=== PATIENT | male | born 1960 | race Caucasian/White ===

== ENCOUNTER 2016-10-13 18:55 | Emergency (ER) | payer BC ==
--- NOTE | 2016-10-13 19:47 | UC ---
Respiratory Complaint HPI - HPI Summary HPI Summary: 56 yo male with fever and cough that started today no n/c no cp or sob he has had intermittent "cold" symptoms x 3 weeks - History of Current Complaint Chief Complaint: UCRespiratory Stated Complaint: UPPER RESP COMPLAINT Time Seen by Provider: 10/13/16 19:12 Hx Obtained From: Patient Onset/Duration: Gradual Onset, Lasting Hours Timing: Constant Severity Initially: Moderate Severity Currently: Moderate Pain Intensity: 2 Character: Cough: Nonproductive Aggravating Factors: Deep Breaths Alleviating Factors: Nothing Associated Signs And Symptoms: Positive: Fever, Chills, Wheezing - Allergies/Home Medications Allergies/Adverse Reactions: Allergies Allergy/AdvReac Type Severity Reaction Status Date / Time Adhesive Tape Allergy Rash Verified 10/13/16 19:03 Home Medications: Home Medications Finasteride TAB* [Proscar TAB*] 10/13/16 [History] Losartan Potassium 10/13/16 [History Confirmed 10/13/16] Tadalafil [Cialis] 10/13/16 [History] PMH/Surg Hx/FS Hx/Imm Hx Previously Healthy: Yes Respiratory History: Pneumonia - Surgical History Surgical History: Yes Surgery Procedure, Year, and Place: WISDOM TEETH REMOVAL 1979 - Family History Known Family History: Positive: Cardiac Disease, Hypertension, Diabetes - Social History Alcohol Use: Occasionally Substance Use Type: None Smoking Status (MU): Light Every Day Tobacco Smoker Review of Systems Constitutional: Fever, Chills Skin: Negative Eyes: Negative ENT: Negative Respiratory: Cough, Other - wheezing Cardiovascular: Negative Gastrointestinal: Negative Genitourinary: Negative Motor: Negative Neurovascular: Negative Musculoskeletal: Negative Neurological: Negative Psychological: Negative All Other Systems Reviewed And Are Negative: Yes Physical Exam Triage Information Reviewed: Yes Appearance: Well-Appearing, No Pain Distress, Well-Nourished Vital Signs: Initial Vital Signs Temp 101.0 F 10/13/16 18:58 Pulse 107 10/13/16 18:58 Resp 18 10/13/16 18:58 BP 176/97 10/13/16 18:58 Pulse Ox 98 10/13/16 18:58 Eyes: Positive: Conjunctiva Clear ENT: Positive: Hearing grossly normal, Nasal drainage, TMs normal. Negative: Tonsillar exudate, Trismus, Muffled/hoarse voice Neck: Positive: Supple, Nontender Respiratory: Positive: No respiratory distress, No accessory muscle use, Wheezing Cardiovascular: Positive: RRR, No Murmur, Tachycardia Musculoskeletal: Positive: ROM Intact, No Edema Neurological: Positive: Alert Psychological Exam: Normal Skin Exam: Normal UC Diagnostic Evaluation - Laboratory O2 Sat by Pulse Oximetry: 98 - normal/not hypoxic Re-Evaluation - Re-Evaluation First Eval Re-Evaluation Time: 20:47 Change: Improved - feels subjectively better, decreased wheezing, better air movement Respiratory Course/Dx - Course Course Of Treatment: patient ale improved at d/c. aware of need for BP recheck. has appt next week - Differential Dx/Diagnosis Provider Diagnoses: acute bronchitis with bronchospasm. elevated BP Discharge - Discharge Plan Condition: Improved Disposition: HOME Patient Education Materials: Acute Bronchitis (ED), Bronchospasm (ED) Forms: *Work Release Referrals: Tere Prince MD [Primary Care Provider] - 5 Days Additional Instructions: rest fluids tylenol use inhaler as directed offical xr report pending at time of d/c recheck for new or worsening symptoms see your MD next week as planned
[2016-10-13] MEDS ORDERED: Albuterol 2.5 MG/3 ML NEB.SOL* (0.083%) INH ONE (19:51)
[2016-10-13] MEDS ORDERED: Ipratropium 0.5MG/2.5ML NEB* 0.5 MG/2.5 ML NEB.SOLN INH ONE (19:51)
[2016-10-13] MEDS ORDERED: Amoxicillin CAP* 500 MG PO ONE (20:57)
[2016-10-13] MEDS ORDERED: predniSONE TAB* 20 MG PO ONE (20:57)
[2016-10-13] MEDS ORDERED: Albuterol HFA INHALER* 8 gm MDI INH ONE (20:57)
--- NOTE | 2016-10-13 21:07 | RAD ---
Indication: Fever and cough. 2 views of the chest including dual energy PA views demonstrates no mediastinal shift. Heart is of normal size and configuration. Lung gibson are clear. IMPRESSION: No active cardiopulmonary disease is noted.
[2016-10-13 23:05] VITALS: BP 134/72
== END 2016-10-13 21:26 | disposition home or self-care (01) ==
LOC: UCEAST 18:55
DX: Z72.0 Tobacco use (principal); J20.9 Acute bronchitis, unspecified; R03.0 Elevated blood-pressure reading, without diagnosis of hypertension
CPT/HCPCS: 71020; 99213; A9270-GY; G0463; J7512; J7644

== ENCOUNTER 2020-06-18 09:12 | Inpatient (IN) ==
[2020-06-18 10:12] LABS: ABS Basophils 0.1 10^3/ul (0-0.2); ABS Eosinophils 0.1 10^3/ul (0-0.6); ABS Lymphocytes 1.2 10^3/ul (1.0-4.8); ABS Monocytes 0.6 10^3/ul (0-0.8); ABS Neutrophils 4.7 10^3/ul (1.5-7.7); Eosinophil % 1.5 %; Hematocrit 40 % (42-52); Hemoglobin 13.5 g/dL (14.0-18.0); Lymphocyte % 18.1 %; Mean Corpuscular HGB Conc 34 g/dL (31-36); Mean Corpuscular Hemoglobin 30 pg (27-31); Mean Corpuscular Volume 90 fL (80-94); Platelet Count 227 10^3/uL (150-450); Red Blood Count 4.46 10^6 /uL (4.18-5.48); Red Cell Distribution Width 14 % (10-15); White Blood Count 6.6 10^3/uL (3.5-10.8)
[2020-06-18 10:27] LABS: Activated Partial Thrombo Time 33.8 seconds (26.0-38.0); INR 1.02 (0.82-1.09)
[2020-06-18 10:31] LABS: ALT 25 U/L (7-52); AST 19 U/L (13-39); Albumin 4.4 g/dL (3.2-5.2); Albumin/Globulin Ratio 1.6 (1-3); Alkaline Phosphatase 72 U/L (34-104); Anion Gap 8 mmol/L (2-11); Blood Urea Nitrogen 26 mg/dL (6-24); CO2 Carbon Dioxide 26 mmol/L (22-32); Calcium 9.2 mg/dL (8.6-10.3); Chloride 106 mmol/L (101-111); Creatine Kinase 138 U/L (10-223); EGFR African American 112.4 (>60); EGFR Non-African American 92.9 (>60); Globulin 2.8 g/dL (2-4); Glucose 144 mg/dL (70-100); Magnesium 2.3 mg/dL (1.9-2.7); Potassium 3.9 mmol/L (3.5-5.0); Sodium 140 mmol/L (135-145); Total Protein 7.2 g/dL (6.4-8.9)
[2020-06-18 10:39] LABS: Urine Appearance Clear; Urine Bilirubin Negative (Negative); Urine Blood Negative (Negative); Urine Color Yellow; Urine Glucose Negative (Negative); Urine Ketones Negative (Negative); Urine Nitrite Negative (Negative); Urine Protein Negative (Negative); Urine Specific Gravity 1.016 (1.010-1.030); Urine Urobilinogen Negative (Negative)
[2020-06-18 10:54] LABS: Troponin I 0.03 ng/mL (<0.03)
[2020-06-18 11:01] LABS: TSH Ultra Thyroid Stim Horm 1.54 mcIU/mL (0.34-5.60)
[2020-06-18 14:25] LABS: Troponin I 0.03 ng/mL (<0.03)
[2020-06-18] MEDS ORDERED: Furosemide 40 mg/4 ml IV VIAL IV ONE (14:40)
[2020-06-18] MEDS ORDERED: Metoprolol Tartrate 5 mg VIAL 5 ml VIAL (1 mg/ml) IV ONE (14:41)
[2020-06-18] MEDS ORDERED: Digoxin IV 0.5 MG/2 ML AMP (0.25 MG/ML) IV SLOW PU ONE (14:41)
[2020-06-18] MEDS ORDERED: Potassium Chlor 20 meq TAB.ER PO ONE (14:44)
[2020-06-18 14:45] LABS: Cholesterol 175 mg/dL; HDL Cholesterol 36.5 mg/dL; Triglycerides 153 mg/dL
[2020-06-18 14:46] LABS: LDL Cholesterol 108 mg/dL
[2020-06-18] MEDS ORDERED: Enoxaparin 40 MG/0.4 ML SYR SUBCUT SCH (15:00)
[2020-06-18 15:35] LABS: Folate > 20.00 ng/mL (>3.99); Vitamin B12 395 pg/mL (180-914)
[2020-06-18 15:59] LABS: ABS Basophils 0.1 10^3/ul (0-0.2); ABS Eosinophils 0.1 10^3/ul (0-0.6); ABS Lymphocytes 1.6 10^3/ul (1.0-4.8); ABS Monocytes 0.7 10^3/ul (0-0.8); ABS Neutrophils 5.3 10^3/ul (1.5-7.7); Eosinophil % 1.7 %; Hematocrit 41 % (42-52); Hemoglobin 13.7 g/dL (14.0-18.0); Lymphocyte % 20.7 %; Mean Corpuscular HGB Conc 33 g/dL (31-36); Mean Corpuscular Hemoglobin 30 pg (27-31); Mean Corpuscular Volume 91 fL (80-94); Mean Platelet Volume 9.1 fL (7.4-10.4); Platelet Count 242 10^3/uL (150-450); Red Blood Count 4.51 10^6 /uL (4.18-5.48); Red Cell Distribution Width 14 % (10-15); White Blood Count 7.9 10^3/uL (3.5-10.8)
[2020-06-18 16:38] LABS: EGFR African American 109.4 (>60); EGFR Non-African American 90.4 (>60)
[2020-06-18 16:49] LABS: % Iron Saturation 14 % (15-55); Iron 58 ug/dL (50-212); Total Iron Binding Capacity 403 mcg/dL (250-450); Transferrin 288 mg/dL (203-362); Unsaturated Iron Binding < 388 ug/dL
[2020-06-18] MEDS: Heparin 5000 UNITS/ML 1 mL VIAL IV SCH (18:01)
[2020-06-18] MEDS: Heparin DRIP 25,000 UNITS BAG 25,000 UNITS/500 ML BAG IV SCH (18:02)
[2020-06-19 00:38] LABS: ABS Basophils 0.1 10^3/ul (0-0.2); ABS Eosinophils 0.2 10^3/ul (0-0.6); ABS Lymphocytes 2.3 10^3/ul (1.0-4.8); ABS Monocytes 0.8 10^3/ul (0-0.8); ABS Neutrophils 4.4 10^3/ul (1.5-7.7); Eosinophil % 2.5 %; Hematocrit 40 % (42-52); Hemoglobin 13.7 g/dL (14.0-18.0); Lymphocyte % 29.9 %; Mean Corpuscular HGB Conc 34 g/dL (31-36); Mean Corpuscular Hemoglobin 31 pg (27-31); Mean Corpuscular Volume 90 fL (80-94); Mean Platelet Volume 9.1 fL (7.4-10.4); Platelet Count 233 10^3/uL (150-450); Red Blood Count 4.44 10^6 /uL (4.18-5.48); Red Cell Distribution Width 14 % (10-15); White Blood Count 7.8 10^3/uL (3.5-10.8)
[2020-06-19] MEDS: Heparin 5000 UNITS/ML 1 mL VIAL IV SCH ×2 (01:10→11:42)
[2020-06-19 03:08] LABS: Troponin I 0.03 ng/mL (<0.03)
[2020-06-19] MEDS ORDERED: Lidocaine 1% VIAL 10 MG/ML VIAL ONE (08:20)
[2020-06-19] MEDS ORDERED: nitroGLYCERIN DRIP 25,000 MCG/250 ML BTL ONE (08:20)
[2020-06-19] MEDS ORDERED: Heparin 2 UNITS/ML 1000 mls 2,000 ML IV ONE (08:20)
[2020-06-19] MEDS ORDERED: VERAPAMIL 2.5 MG/ML 2 ML VIAL ** 5 mg/2 ml ONE (08:20)
[2020-06-19] MEDS ORDERED: fentaNYL 100 mcg/2 ml 50 MCG/ML VIAL ONE (08:20)
[2020-06-19] MEDS ORDERED: Heparin 1,000 UNIT/ML 10 ml (10,000 UNITS) CATHLAB/DIALYSIS ONE ×2 (08:20→11:35)
[2020-06-19] MEDS ORDERED: Midazolam 5 mg/5 ml VIAL 1 mg/ml 5 ml VIAL (5 mg) ONE ×2 (08:20→09:52)
[2020-06-19] MEDS ORDERED: Iohexol 350 (CONTRAST) 200 ML MDV IV ONE (08:21)
[2020-06-19 08:30] LABS: Anion Gap 10 mmol/L (2-11); BUN/Creatinine Ratio 24.4 (8-20); Blood Urea Nitrogen 22 mg/dL (6-24); CO2 Carbon Dioxide 25 mmol/L (22-32); Calcium 9.1 mg/dL (8.6-10.3); Chloride 104 mmol/L (101-111); EGFR African American 103.8 (>60); EGFR Non-African American 85.8 (>60); Glucose 134 mg/dL (70-100); Potassium 3.7 mmol/L (3.5-5.0); Sodium 139 mmol/L (135-145)
[2020-06-19] MEDS: DULoxetine DR 20 mg CAP PO SCH (08:38)
[2020-06-19] MEDS ORDERED: Potassium Chloride LIQUID 20 MEQ/15 ML LIQUID PO ONE (08:58)
[2020-06-19] MEDS ORDERED: Pneumococcal Vac 23-Polyvalent IM ONE (09:00)
[2020-06-19] MEDS ORDERED: Iron Sucrose 200 MG in NS 0.9% 100 ml BAG 100 ML IVPB ONE (09:30)
[2020-06-19] MEDS ORDERED: Flumazenil 0.5 mg/5 ml 0.1 MG/ML 5 ml VIAL ONE (09:52)
[2020-06-19] MEDS ORDERED: Naloxone 0.4 mg VIAL 0.4 mg/ml 1 ml VIAL ONE (09:52)
[2020-06-19 10:14] LABS: Magnesium 2.3 mg/dL (1.9-2.7)
[2020-06-19] MEDS ORDERED: Heparin DRIP 25,000 UNITS BAG 25,000 UNITS/500 ML BAG ONE (10:49)
[2020-06-19] MEDS: Heparin DRIP 25,000 UNITS BAG 25,000 UNITS/500 ML BAG IV SCH (11:16)
[2020-06-19] MEDS: Iron Sucrose 200 MG in NS 0.9% 100 ml BAG 100 ML IVPB SCH (14:42)
[2020-06-20 06:16] LABS: CO2 Carbon Dioxide 24 mmol/L (22-32); Calcium 9.1 mg/dL (8.6-10.3); Chloride 107 mmol/L (101-111); Sodium 139 mmol/L (135-145)
[2020-06-20 06:21] LABS: ABS Eosinophils 0.1 10^3/ul (0-0.6); ABS Lymphocytes 1.4 10^3/ul (1.0-4.8); ABS Monocytes 0.5 10^3/ul (0-0.8); BUN/Creatinine Ratio 22.8 (8-20); Blood Urea Nitrogen 21 mg/dL (6-24); EGFR African American 101.2 (>60); EGFR Non-African American 83.6 (>60); Eosinophil % 1.9 %; Glucose 149 mg/dL (70-100); Hematocrit 40 % (42-52); Hemoglobin 13.1 g/dL (14.0-18.0); Lymphocyte % 19.9 %; Mean Corpuscular HGB Conc 33 g/dL (31-36); Mean Corpuscular Hemoglobin 30 pg (27-31); Mean Corpuscular Volume 93 fL (80-94); Mean Platelet Volume 10.2 fL (7.4-10.4); Nucleated Red Blood Cells % 0.1; Platelet Count 181 10^3/uL (150-450); Red Blood Count 4.33 10^6 /uL (4.18-5.48); Red Cell Distribution Width 14 % (10-15); White Blood Count 7.2 10^3/uL (3.5-10.8)
[2020-06-20 06:41] LABS: Anion Gap 8 mmol/L (2-11)
[2020-06-20] MEDS: DULoxetine DR 20 mg CAP PO SCH (09:55)
[2020-06-20] MEDS ORDERED: Furosemide 40 mg/4 ml IV VIAL IV ONE (10:29)
[2020-06-20] MEDS ORDERED: Potassium Chloride LIQUID 20 MEQ/15 ML LIQUID PO ONE (10:33)
[2020-06-20] MEDS: Iron Sucrose 200 MG in NS 0.9% 100 ml BAG 100 ML IVPB SCH (14:36)
[2020-06-21 05:41] LABS: ABS Eosinophils 0.2 10^3/ul (0-0.6); ABS Lymphocytes 1.3 10^3/ul (1.0-4.8); ABS Monocytes 0.6 10^3/ul (0-0.8); ABS Neutrophils 4.4 10^3/ul (1.5-7.7); Eosinophil % 2.4 %; Hematocrit 39 % (42-52); Hemoglobin 13.2 g/dL (14.0-18.0); Lymphocyte % 20.4 %; Mean Corpuscular HGB Conc 34 g/dL (31-36); Mean Corpuscular Hemoglobin 30 pg (27-31); Mean Corpuscular Volume 91 fL (80-94); Mean Platelet Volume 8.9 fL (7.4-10.4); Platelet Count 202 10^3/uL (150-450); Red Blood Count 4.34 10^6 /uL (4.18-5.48); Red Cell Distribution Width 14 % (10-15); White Blood Count 6.5 10^3/uL (3.5-10.8)
[2020-06-21 05:59] LABS: Anion Gap 6 mmol/L (2-11); BUN/Creatinine Ratio 21.2 (8-20); Blood Urea Nitrogen 18 mg/dL (6-24); CO2 Carbon Dioxide 27 mmol/L (22-32); Calcium 9.3 mg/dL (8.6-10.3); Chloride 107 mmol/L (101-111); EGFR African American 110.9 (>60); EGFR Non-African American 91.6 (>60); Glucose 131 mg/dL (70-100); Magnesium 2.3 mg/dL (1.9-2.7); Sodium 140 mmol/L (135-145)
[2020-06-21 06:14] LABS: Troponin I 0.04 ng/mL (<0.03)
[2020-06-21] MEDS: DULoxetine DR 20 mg CAP PO SCH (09:00)
[2020-06-21] MEDS ORDERED: Furosemide 40 mg/4 ml IV VIAL IV ONE (11:15)
[2020-06-21] MEDS ORDERED: Potassium Chloride LIQUID 20 MEQ/15 ML LIQUID PO ONE (11:20)
[2020-06-21] MEDS: Iron Sucrose 200 MG in NS 0.9% 100 ml BAG 100 ML IVPB SCH (15:22)
[2020-06-21 15:40] VITALS: BP 146/80
== END 2020-06-21 17:30 | disposition home or self-care (01) | DRG 192 ==
LOC: ED 09:12 → MEDTELE 14:16
PROVIDERS: ADMIT Hospitalist; ATTEND Internal Medicine